=== PATIENT | male | born 1945 ===

== ENCOUNTER 2017-11-18 02:14 | Observation (INO) | payer OTHER, MEDICARE ==
[2017-11-18] VITALS (12 sets, daily range): BP systolic 105–153; BP diastolic 34–94
[~2017-11-18] VITALS: Ht 182.9 cm; Wt 78.5 kg
[~2017-11-18 02:14] MED LIST: ASPI-1471 PO; ASPI81TA94 PO; CARB-124 PO; CARB-94 PO; FES4PT PO; HYDR-385 PO; LEVO75TA73 PO; NEBI10TA4 PO; OLM20 PO; PRIM50TA PO; RASA1TAB3 PO; SELE5CAP PO
[2017-11-18] MEDS ORDERED: fentaNYL CITR 100 MCG/2 ML AMP ONE ×4 (12:20→16:32)
[2017-11-18] MEDS ORDERED: DEXAMETHASONE SOD 4 MG/ML VIAL ONE (12:21)
[2017-11-18] MEDS ORDERED: ONDANSETRON 4 MG/2 ML VIAL ONE ×2 (12:21→16:15)
[2017-11-18] MEDS ORDERED: LIDOCAINE MPF 1% 5 ML VIAL ONE (12:21)
[2017-11-18] MEDS ORDERED: PROPOFOL EMUL(*) 10MG/ML 20 ML 20 ML ONE (12:21)
[2017-11-18 12:38] LABS: PLATELET COUNT, AUTOMATED 451 K/uL (150-450)
--- NOTE | 2017-11-18 12:58 | EKG ---
[place] [facility] [place] NAME: ILYA HILLS : [id number] MR: [id number] V: [id number] EXAM DATE: ORDERING PHYSICIAN: BRI CROWDER TECHNOLOGIST: PREOP Test Reason : FLOCK Blood Pressure : / mmHG Vent. Rate : 063 BPM Atrial Rate : 063 BPM P-R Int : 184 ms QRS Dur : 080 ms QT Int : 414 ms P-R-T Axes : 018 008 027 degrees QTc Int : 423 ms Normal sinus rhythm Normal ECG No previous ECGs available Confirmed by GARCÍA CLARK ([id number]) on 11/18/2017 8:52:14 PM Referred By: Confirmed By:GARCÍA CLARK
[2017-11-18] MEDS ORDERED: NORMOSOL R SOLN(*) 1000 ML BAG 1,000 ML IV PRN (13:30)
[2017-11-18] MEDS ORDERED: LIDOCAINE/SOD BICARB 8.4% SYR ID ONE (13:30)
[2017-11-18] MEDS ORDERED: cefTRIAXone(*) 1 GM VIAL 1 GM in NS(*) 0.9% 100 ML ADDVANT BAG 100 ML IVPB ONE (13:30)
[2017-11-18] MEDS ORDERED: FAMOTIDINE 20 MG TAB PO ONE (13:30)
[2017-11-18] MEDS ORDERED: HYDROCORTISONE 1% CR 28.35 GM TP ONE (13:51)
[2017-11-18] MEDS ORDERED: SUGAMMADEX SOD 200 MG/2 ML SDV ONE (14:27)
[2017-11-18] MEDS ORDERED: KETAMINE HCL 200 MG/20 ML MDV ONE (14:30)
[2017-11-18] MEDS ORDERED: GENTAMICIN 80 MG/2 ML VIAL ONE (14:43)
[2017-11-18] MEDS ORDERED: MINERAL OIL LIGHT 10 ML VIAL ONE (14:56)
[2017-11-18] MEDS ORDERED: NS(*) 0.9% 100 ML BAG 100 ML ONE (15:06)
[2017-11-18] MEDS ORDERED: GLYCOPYRROLATE 0.2MG/ML 1 ML INJ ONE (16:13)
[2017-11-18] MEDS ORDERED: BELLADONNA ALK/OPIUM 60MG SUPP PR ONE (16:13)
[2017-11-18] MEDS ORDERED: LR(*) 1000 ML BAG 1,000 ML ONE (16:23)
[2017-11-18] MEDS ORDERED: ZOLPIDEM TARTRATE 5 MG TAB PO PRN (16:35)
[2017-11-18] MEDS ORDERED: FLUSH 10 ML SYR IVP PRN (16:35)
[2017-11-18] MEDS ORDERED: ONDANSETRON 4 MG/2 ML VIAL IVP PRN (16:35)
[2017-11-18] MEDS ORDERED: HYDROmorphone PCA 6 MG/30 ML IV PRN (16:35)
[2017-11-18] MEDS ORDERED: LR(*) 1000 ML BAG 1,000 ML IV PRN (16:35)
[2017-11-18] MEDS ORDERED: NALOXONE HCL 0.4 MG/ML VIAL IVP PRN (16:35)
[2017-11-18] MEDS ORDERED: PROPANTHELINE BROMIDE 15MG TAB PO PRN (16:35)
[2017-11-18] MEDS ORDERED: NS 0.9% 3000 ML IRRIGATION BAG 3,000 ML IR ONE (17:01)
[2017-11-18] MEDS ORDERED: NS 0.9% 3000 ML IRRIGATION BAG 3,000 ML in NS 0.9% 3000 ML IRRIGATION BAG 3,000 ML IR PRN (17:10)
[2017-11-18] MEDS ORDERED: DOCU-442 PO (17:42)
[2017-11-18] MEDS ORDERED: CHOL10005 PO (17:42)
[2017-11-18] MEDS ORDERED: CEVI30CA PO (17:42)
--- NOTE | 2017-11-18 19:53 | Hospitalist Progress Note ---
Subjective Progress Notes Subjective No cp/sob. No concerns from staff. 50cc of EBL. 1000cc of crystalloid, dexamethasone, and Ketamine given intraop. Physical Exam Vital Signs Date Time Temp Pulse Resp B/P (MAP) Pulse Ox O2 Delivery O2 Flow Rate FiO2 11/18/17 19:28 16 94 11/18/17 17:03 74 113/74 (87) Nasal Cannula 2.0 11/18/17 12:34 97.8 Intake and Output 11/19/17 07:00 Intake Total 2300 ml Output Total 150 ml Balance 2150 ml Intake Oral 100 ml IV Total 1100 ml Other 1100 ml Output Urine Total 100 ml Estimated Blood Loss 50 ml # Voids 1 General Appearance: Alert, Awake, No Acute Distress Cardiovascular: Regular Rate and Rhythm Respiratory: Clear to Auscultation Extremities: No Edema Result Diagram: 11/18/17 1223 11/18/17 1223 Assessment and Plan Problems: (1) S/P TURP Status: Acute Assessment & Plan: No CV/pulmonary issues. See Dr. Manzano's notes. (2) Parkinson disease Status: Chronic Assessment & Plan: Continue chronic Carbidopa/Levodopa ER, Carbidopa/Levodopa, Primidone, Azilect, Selegiline, and Cevimeline. (3) HTN (hypertension) Status: Chronic Assessment & Plan: Continue chronic Bystolic and Benicar with parameters (4) Hypothyroid Status: Chronic Assessment & Plan: Continue levothyroxine. Copies to: BRENT OH MD, LARS MD Nov 18, 2017 19:53
[2017-11-18] MEDS ORDERED: GLYCOPYRROLATE 0.2MG/ML 1 ML INJ IVP PRN (20:00)
[2017-11-18] MEDS ORDERED: NEBIVOLOL HCL 5 MG TAB PO SCH (21:00)
[2017-11-18] MEDS ORDERED: OLMESARTAN 20 MG TAB PO SCH (21:00)
[2017-11-18] MEDS ORDERED: ESZOPICLONE 2 MG TAB PO SCH ×2 (21:00)
[2017-11-18] MEDS ORDERED: LEVOTHYROXINE SOD 0.075 MG TAB PO SCH (21:00)
[2017-11-18] MEDS: CEVIMELINE HCL 30 MG PO SCH (21:00)
[2017-11-18] MEDS ORDERED: PRIMIDONE 50 MG TAB PO SCH (21:00)
[2017-11-18] MEDS: PHENAZOPYRIDINE 200 MG TAB PO PRN (21:35)
[2017-11-18] MEDS: DOCUSATE SODIUM 100 MG CAP PO SCH (21:36)
[2017-11-18] MEDS: NEOMYCIN/POLYMYX/BACITR OINT 1 PACKET TP SCH (21:36)
[2017-11-18] MEDS: LEVODOPA PO SCH (21:36)
[2017-11-18] MEDS: CARBIDOPA/LEVODOPA 25/100 TAB PO SCH (21:36)
[2017-11-18] MEDS: [UNRECOGNIZED DRUG - OTHER] PO SCH (21:36)
[2017-11-18] MEDS: PRIMIDONE 50 MG TAB PO SCH (21:36)
[2017-11-18] MEDS: FAMOTIDINE 20 MG TAB PO SCH (21:36)
[2017-11-18] MEDS: TABCR PO SCH (21:36)
[2017-11-19] MEDS ORDERED: NS 0.9% 3000 ML IRRIGATION BAG 3,000 ML IR ONE (01:23)
[2017-11-19] MEDS ORDERED: GENTAMICIN/NS 80 MG/100 ML PB 100 ML IVPB SCH (03:00)
[2017-11-19 03:04] VITALS: BP 95/63
[2017-11-19] MEDS ORDERED: BELLADONNA ALK/OPIUM 60MG SUPP PR PRN (04:00)
[2017-11-19] MEDS: PHENAZOPYRIDINE 200 MG TAB PO PRN (04:43)
[2017-11-19] MEDS ORDERED: RASAGILINE MESYLATE 1 MG TAB PO SCH ×2 (07:00→09:00)
[2017-11-19] MEDS: TABCR PO SCH (07:07)
[2017-11-19] MEDS: CARBIDOPA/LEVODOPA 25/100 TAB PO SCH (07:07)
[2017-11-19] MEDS: CEVIMELINE HCL 30 MG PO SCH (07:07)
[2017-11-19] MEDS: [UNRECOGNIZED DRUG - OTHER] PO SCH (07:07)
[2017-11-19] MEDS: LEVODOPA PO SCH (07:07)
[2017-11-19] MEDS: PRIMIDONE 50 MG TAB PO SCH (07:07)
--- NOTE | 2017-11-19 07:32 | Hospitalist Progress Note ---
Subjective Progress Notes Subjective No cp/sob. No concerns from the patient or staff. Pain under better control. Physical Exam Vital Signs Date Time Temp Pulse Resp B/P (MAP) Pulse Ox O2 Delivery O2 Flow Rate FiO2 11/19/17 04:40 20 94 11/19/17 03:04 98.4 72 95/63 (74) Nasal Cannula 1.0 General Appearance: Alert, Awake, No Acute Distress Result Diagram: 11/18/17 1223 11/19/17 0522 Assessment and Plan Problems: (1) S/P TURP Status: Acute Assessment & Plan: No CV/pulmonary issues. See Dr. Manzano's notes. (2) Parkinson disease Status: Chronic Assessment & Plan: Continue chronic Carbidopa/Levodopa ER, Carbidopa/Levodopa, Primidone, Azilect, Selegiline, and Cevimeline. (3) HTN (hypertension) Status: Chronic Assessment & Plan: Continue chronic Bystolic and Benicar with parameters (4) Hypothyroid Status: Chronic Assessment & Plan: Continue levothyroxine. Exam Sepsis Risk: No Definite Risk GARCÍA CLARK MD Nov 19, 2017 07:32
[2017-11-19 07:44] VITALS: BP 111/79
[2017-11-19] MEDS ORDERED: CEVIMELINE HCL 30 MG PO SCH (09:00)
[2017-11-19] MEDS ORDERED: TAMS0.4C25 PO (09:06)
[2017-11-19] MEDS ORDERED: CIPR-214 PO (09:10)
[2017-11-19] MEDS ORDERED: HYDR-4309 PO (09:11)
[2017-11-19] MEDS ORDERED: FAMO20TA28 PO (09:12)
[2017-11-19] MEDS ORDERED: PHEN200T32 PO (09:14)
[2017-11-19 09:24] VITALS: Ht 182.9 cm; Wt 78.5 kg
[2017-11-19] MEDS: NEOMYCIN/POLYMYX/BACITR OINT 1 PACKET TP SCH (09:33)
[2017-11-19] MEDS: FAMOTIDINE 20 MG TAB PO SCH (09:33)
[2017-11-19] MEDS: DOCUSATE SODIUM 100 MG CAP PO SCH (09:33)
[2017-11-19] MEDS ORDERED: SELEGILINE HCL 5 MG TAB PO ONE (12:00)
[2017-11-19] MEDS ORDERED: cefTRIAXone(*) 1 GM VIAL 1 GM in NS(*) 0.9% 100 ML ADDVANT BAG 100 ML IVPB SCH (14:00)
--- NOTE | 2017-11-19 16:55 | OPERATIVE REPORT 1 ---
EVENT DATE: November 18, 2017 SURGEON: Oz Manzano MD ANESTHESIOLOGIST: Sanjay Melendrez MD ANESTHESIA: General anesthetic. PREOPERATIVE DIAGNOSES 1. 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 2. 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 3. Renal insufficiency secondary to #1. POSTOPERATIVE DIAGNOSES 1. 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 2. 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 3. Renal insufficiency secondary to #1. PROCEDURES PERFORMED 1. Cystourethroscopy. 2. Hydrodistention of the bladder. 3. Transurethral resection of the prostate. 4. Vaporization of the prostate. DESCRIPTION OF PROCEDURE Under general anesthetic, the patient was prepped and draped in the extended lithotomy position. The 21 panendoscope admitted through the urethra into the bladder. Prostate showed trilobar hyperplasia with obstruction, and there was a moderate median lobe that extended approximately 1 cm into the bladder area. Trigone and ureteral orifices were normal. The bladder showed 4+ trabeculation throughout. No other demonstrable lesions. Trigone and ureteral orifices were normal. The bladder capacity gravity pressure was approximately 325 mL. The resection was begun by resecting the median lobe back to the verumontanum. The tissue was resected down to the circular fibers at the bladder neck circumferentially. Bleeding was controlled with spot coagulation. The right and left lateral lobe tissue was resected. The posterior tissues were resected with a finger directing. The bleeding was controlled with spot coagulation. The chips were evacuated from the bladder. The bleeding appeared to be satisfactorily controlled. The entire prostatic capsule was vaporized. Again, at conclusion of the procedure, the bleeding appeared to be satisfactorily controlled. Bladder was filled under gravity pressure. The scope was withdrawn. There was a good efflux of irrigation fluid that was almost the size of my little finger. The #20 three-way Macias was placed through the urethra to the bladder. The irrigation was satisfactory. At conclusion of the procedure, the irrigation was clear. Estimated blood loss is a few milliliters, my clinical impression less than 50 mL. Patient was stable throughout the procedure and returned to the recovery room in satisfactory condition. This is a 72-year-old white male complaining of outlet obstruction from the prostate gland with overflow urinary incontinence. Flomax failed to relieve his problem. CT IVP showed a large bladder with bilateral renal pyelocaliectasis. The patient's GFR was approximately 31 pretreatment, and after Macias placement, it was 50. Creatinine was 1.8 on this admission. Both parameters significantly improved. Patient was doing well and wished further evaluation and therapy. was present. Options were discussed as to transurethral resection of the prostate versus open procedure. Patient will be ready for discharge home in the a.m. if all is going well. Force fluids, 2 L per day. Activities are restricted to careful ambulation. He is to continue his usual medications. Copy of instructions were given to the patient. Plan followup in the office this coming Saturday in the office. He is to call for an appointment. Patient will be discharged home on Cipro, Pepcid , Colace, Pyridium, and Amistad therapy in addition to his usual medications. Copy of instructions was given to the patient. ERIKA
[2017-11-25] MEDS ORDERED: MIDAZOLAM 2 MG/2 ML VIAL IVP PRN (13:30)
== END 2017-11-19 08:52 | disposition home or self-care (01) ==
LOC: OR 02:14 → MED 17:00
DX: N40.0 Benign prostatic hyperplasia without lower urinary tract symptoms (principal); N13.30 Unspecified hydronephrosis; N28.9 Disorder of kidney and ureter, unspecified; I10 Essential (primary) hypertension
CPT/HCPCS: 36415; 52648; 85025; 88305; 93005; G0378; J0696; J1100; J1170; J1580; J2001; J2405; J2704; J3010; J3490; J7050; J7120; 82040; 82247; 82310; 82374; 82435; 82565; 82947; 84075; 84132; 84155; 84295; 84450; 84460; 84520; A4346